=== PATIENT | female | born 1965 ===

== ENCOUNTER 2017-10-26 18:31 | Emergency (ER) | payer OTHER ==
[2017-10-26 18:43] VITALS: BMI 30.2
[2017-10-26 18:44] VITALS: TEMP 98.6; O2SAT 98
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
[2017-10-26 21:07] VITALS: BP 132/85; PULSE 74; RESP 16
--- NOTE | 2017-10-27 13:38 | RAD ---
PROCEDURE: Radiographs of Nasal Bones HISTORY: nasal injury COMPARISON: None available. TECHNIQUE: Frontal and lateral radiographs of the nasal bones. FINDINGS: A nondisplaced fracture of the midline or possibly left-sided nasal bones is suggested a limited local soft tissue edema is identified. No emphysema soft tissue changes are seen related or retained radiodense foreign body. IMPRESSION: Positive for fracture of left-sided nasal bones a nondisplaced.
== END 2017-10-26 21:05 | disposition home or self-care (01) ==
LOC: C.ER 18:31
DX: S02.2XXA Fracture of nasal bones, initial encounter for closed fracture (principal); V89.2XXA Person injured in unspecified motor-vehicle accident, traffic, initial encounter; R04.0 Epistaxis